=== PATIENT | female | born 1970 | race Caucasian/White ===

== ENCOUNTER 2018-02-25 05:50 | Emergency (ER) | payer OTHER ==
[~2018-02-25] VITALS: Ht 167.6 cm; Wt 95.0 kg
[2018-02-25 05:52] VITALS: TEMP 96.8
[2018-02-25] MEDS ORDERED: PROAIR HFA0.09 MG/AC IH ×2 (07:15→07:18)
[2018-02-25] MEDS ORDERED: 00186-0370-20 IH (07:18)
[2018-02-25] MEDS ORDERED: PREDNISONE20 MG PO (07:18)
[2018-02-25 07:58] VITALS: BP 145/83; PULSE 92
== END 2018-02-25 07:58 | disposition home or self-care (01) ==
LOC: COL.ER 05:50
DX: J45.901 Unspecified asthma with (acute) exacerbation (principal); I10 Essential (primary) hypertension
CPT/HCPCS: J7512